=== PATIENT | female | born 1955 | race Caucasian/White ===

== ENCOUNTER → 2018-08-01 16:51 | Outpatient (CLI) | payer BC | END | disposition home or self-care (01) | LOC: D.CT 16:51 | DX: R10.9 Unspecified abdominal pain (principal) ==

== ENCOUNTER 2019-08-23 19:51 | Outpatient (CLI) | payer BC | END 2019-08-23 23:59 | disposition home or self-care (01) | LOC: D.MAMMO 19:51 | PROVIDERS: ATTEND Family Medicine | DX: Z12.31 Encounter for screening mammogram for malignant neoplasm of breast (principal) ==